=== PATIENT | male | born 1955 | race Caucasian/White ===

== ENCOUNTER 2019-01-08 05:40 | Emergency (ER) | payer MEDICARE, OTHER ==
[~2019-01-08] VITALS: Wt 76.3 kg
[2019-01-08 05:47] VITALS: BP 153/67; PULSE 87; RESP 18
[2019-01-08] MEDS ORDERED: ONDANSETRON (ODT) 4 MG TAB ODT STA (06:33)
[2019-01-08] MEDS ORDERED: HYDROCODONE/APAP (5/325) TAB PO ONE (07:00)
[2019-01-08] MEDS ORDERED: HYDR-4011 PO (07:47)
[2019-01-08] MEDS ORDERED: NAPR-985 PO (07:47)
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
== END 2019-01-08 08:53 | disposition home or self-care (01) ==
LOC: FTE 05:40
DX: S42.002A Fracture of unspecified part of left clavicle, initial encounter for closed fracture (principal); S22.42XA Multiple fractures of ribs, left side, initial encounter for closed fracture; I10 Essential (primary) hypertension; E11.9 Type 2 diabetes mellitus without complications; V03.10XA Pedestrian on foot injured in collision with car, pick-up truck or van in traffic accident, initial encounter; Z79.4 Long term (current) use of insulin
CPT/HCPCS: 71100; 73030; 73562

== ENCOUNTER 2019-01-12 23:00 | Emergency (ER) | payer MEDICARE, OTHER ==
[~2019-01-12] VITALS: Ht 170.2 cm; Wt 75.9 kg
[~2019-01-12 23:00] MED LIST: HYDR-4011 PO; NAPR-985 PO
[2019-01-12 23:44] VITALS: Ht 170.2 cm; Wt 75.9 kg
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
[2019-01-13] MEDS ORDERED: SENN-120 PO (02:36)
[2019-01-13] MEDS ORDERED: DOCU-144 PO (02:36)
[2019-01-13 02:58] VITALS: BP 129/81; PULSE 66; RESP 18
== END 2019-01-13 02:59 | disposition home or self-care (01) ==
LOC: FTE 23:00
DX: R07.81 Pleurodynia (principal)
CPT/HCPCS: 99282